=== PATIENT | female | born 1940 | race Caucasian/White ===

== ENCOUNTER 2021-08-10 14:09 | Outpatient (CLI) | payer MEDICARE, BC | END 2021-08-10 14:10 | disposition home or self-care (01) | LOC: BICMAMMO 14:09 | PROVIDERS: ATTEND Family Medicine | DX: Z12.31 Encounter for screening mammogram for malignant neoplasm of breast (principal) | CPT/HCPCS: 77063; 77067 ==

== ENCOUNTER 2022-02-20 13:57 | Outpatient (CLI) | payer MEDICARE, BC | END 2022-02-20 13:58 | disposition home or self-care (01) | LOC: LABBT 13:57 | PROVIDERS: ATTEND Ophthalmology Retina Specialist | DX: Z20.822 Contact with and (suspected) exposure to COVID-19 (principal) | CPT/HCPCS: 87811 ==

== ENCOUNTER 2022-02-22 08:37 | Day surgery (SDC) | payer MEDICARE, BC ==
[2022-02-21 12:48] VITALS: BMI 24.9
[~2022-02-22 08:37] MED LIST: EPINEPHrine 0.3 MG in Ophthalmic Irrigation Solution 500 ML IRR SCH
[2022-02-22] MEDS ORDERED: Cyclopentolate 1% Opth Drop 2 ML BOT ONE (09:13)
[2022-02-22] MEDS ORDERED: Phenylephrine 2.5% Ophth Soln 5 ML BOT ONE (09:13)
[2022-02-22] MEDS ORDERED: fentaNYL Citrate/PF 100 MCG/2 ML SYRINGE ONE (10:39)
[2022-02-22] MEDS ORDERED: Bupivacaine 0.75% 10 ML VIAL ONE (10:43)
[2022-02-22] MEDS ORDERED: Lidocaine 1% PF 5 ML VIAL ONE ×2 (10:43)
[2022-02-22] MEDS ORDERED: Phenylephrine 10 MG/ML VIAL ONE (10:43)
[2022-02-22] MEDS ORDERED: CEFAZOLIN 1 GM VIAL ONE (10:43)
[2022-02-22] MEDS ORDERED: Lidocaine 4% PF 5 ML AMP ONE (10:43)
[2022-02-22] MEDS ORDERED: Dexamethasone 20 MG/5 ML VIAL ONE (10:43)
[2022-02-22] MEDS ORDERED: Glycopyrrolate 0.2 MG/ML 5 ML SYRINGE ONE (10:43)
[2022-02-22] MEDS ORDERED: ePHEDrine 50 MG/ML VIAL ONE (10:43)
[2022-02-22] MEDS ORDERED: Ondansetron PF 4 MG/2 ML Vial ONE (10:43)
[2022-02-22] MEDS ORDERED: PROPOFOL 200 MG/20 ML VIAL ONE (10:43)
[2022-02-22] MEDS ORDERED: Triamcinolone 40 MG/ML VIAL ONE (10:43)
[2022-02-22] MEDS ORDERED: Maxitrol 0.1% Opth Oint 3.5 GM TUBE ONE (10:43)
[2022-02-22] MEDS ORDERED: Enoxaparin Sodium 30 MG/0.3 ML SYRINGE ONE (10:43)
== END 2022-02-22 14:10 | disposition home or self-care (01) ==
LOC: SDC 08:37
PROVIDERS: ATTEND Ophthalmology Retina Specialist
PROC: 08RK3JZ Replacement of Left Lens with Synthetic Substitute, Percutaneous Approach (ICD-10-PCS; principal; 2022-02-22)
PROC: 08T53ZZ Resection of Left Vitreous, Percutaneous Approach (ICD-10-PCS; 2022-02-22)
DX: H59.022 Cataract (lens) fragments in eye following cataract surgery, left eye (principal); H27.02 Aphakia, left eye; Z79.890 Hormone replacement therapy; Z79.899 Other long term (current) drug therapy
CPT/HCPCS: J0171; J0690; J1100; J1650; J2370; J2405; J2704; J3301; J3490

== ENCOUNTER 2022-03-06 17:01 | Outpatient (CLI) | payer MEDICARE, BC | END 2022-03-06 17:02 | disposition home or self-care (01) | LOC: LABBT 17:01 | PROVIDERS: ATTEND Ophthalmology Retina Specialist | DX: Z20.822 Contact with and (suspected) exposure to COVID-19 (principal) | CPT/HCPCS: 87811 ==

== ENCOUNTER 2022-03-08 08:34 | Day surgery (SDC) | payer MEDICARE, BC ==
[2022-03-07 10:06] VITALS: BMI 24.1
[~2022-03-08 08:34] MED LIST changes: +Acetaminophen 500 MG TAB PO PRN; +Cyclopentolate 1% Opth Drop 2 ML BOT L EYE SCH; +Midazolam HCl 2 mg/2 ml Vial ONE; +Phenylephrine 2.5% Ophth Soln 5 ML BOT L EYE SCH; +fentaNYL Citrate/PF 100 MCG/2 ML SYRINGE ONE
[2022-03-08] MEDS ORDERED: Phenylephrine 2.5% Ophth Soln 5 ML BOT ONE (08:40)
[2022-03-08] MEDS ORDERED: Cyclopentolate 1% Opth Drop 2 ML BOT ONE (08:40)
[2022-03-08] MEDS ORDERED: Triamcinolone 40 MG/ML VIAL ONE (09:31)
[2022-03-08] MEDS ORDERED: CEFAZOLIN 1 GM VIAL ONE (09:31)
[2022-03-08] MEDS ORDERED: PROPOFOL 200 MG/20 ML VIAL ONE (09:31)
[2022-03-08] MEDS ORDERED: Bupivacaine 0.75% 10 ML VIAL ONE (09:31)
[2022-03-08] MEDS ORDERED: Maxitrol 0.1% Opth Oint 3.5 GM TUBE ONE (09:31)
[2022-03-08] MEDS ORDERED: Lidocaine 4% PF 5 ML AMP ONE (09:31)
[2022-03-08] MEDS ORDERED: Lidocaine 1% PF 5 ML VIAL ONE (09:31)
== END 2022-03-08 11:39 | disposition home or self-care (01) ==
LOC: SDC 08:34
PROVIDERS: ATTEND Ophthalmology Retina Specialist
PROC: 08T53ZZ Resection of Left Vitreous, Percutaneous Approach (ICD-10-PCS; principal; 2022-03-08)
PROC: 3E1CX8Z Irrigation of Eye using Irrigating Substance (ICD-10-PCS; 2022-03-08)
DX: H43.12 Vitreous hemorrhage, left eye (principal); H21.02 Hyphema, left eye; Z79.890 Hormone replacement therapy; Z79.899 Other long term (current) drug therapy
CPT/HCPCS: J0171; J0690; J2250; J2704; J3301; J3490

== ENCOUNTER 2023-12-06 09:10 | Outpatient (CLI) | payer MEDICARE ==
[2023-12-06] MEDS ORDERED: Regadenoson 0.4 MG/5 ML SYRINGE ONE (10:44)
== END 2023-12-06 09:11 | disposition home or self-care (01) ==
LOC: NM 09:10
PROVIDERS: ATTEND Student in an Organized Health Care Education/Training Program
DX: R07.2 Precordial pain (principal); I20.9 Angina pectoris, unspecified
CPT/HCPCS: 78452; 93017; A9502; J2785